=== PATIENT | male | born 1980 | race Hispanic/Latino ===

== ENCOUNTER 2017-10-20 08:47 | Inpatient (IN) | payer SELFPAY ==
[2017-10-20 09:13] LABS: #Eosinphils 0.3 thou/uL (0.0-0.7); #Lymphocytes 1.2 thou/uL (1.20-3.40); #Monocytes 0.6 thou/uL (0.11-0.59); #Neutrophils 4.8 thou/uL (1.40-6.50); %Basophils 0.3 % (0.0-1.0); %Lymphocytes 17.5 % (21.0-51.0); %Neutrophils 69.2 % (42.0-75.0); Mean Corpuscular HGB CONC 33.5 g/dL (32.0-36.0); Mean Corpuscular Hemoglobin 29.7 pg (27.0-31.0); Mean Corpuscular Volume 88.6 fL (78.0-98.0); Mean Platelet Volume 7.1 fL (7.4-10.4); Platelet Count 222 thou/uL (130-400); RBC Distribution Width 12.6 % (11.5-14.5); Red Blood Cell (RBC) Count 3.36 mill/uL (4.70-6.10)
[2017-10-20 09:34] LABS: ALT (SGPT) 15 U/L (8-55); AST (SGOT) 19 U/L (5-34); Albumin 3.4 g/dL (3.5-5.0); Alkaline Phosphatase 142 U/L (40-150); Anion Gap 14 mmol/L (10-20); BUN (Urea Nitrogen) 62 mg/dL (8.9-20.6); Bilirubin, Total 0.5 mg/dL (0.2-1.2); Calc. Creatinine Clearance 0 mL/min (70-130); Calcium 8.3 mg/dL (7.8-10.44); Carbon Dioxide 21 mmol/L (22-29); Chloride 98 mmol/L (98-107); Estimated GFR-MDRD 17; Globulin 4.3 g/dL (2.4-3.5); Glucose 383 mg/dL (70-105); Potassium 4.9 mmol/L (3.5-5.1); Protein, Total 7.7 g/dL (6.0-8.3); Sodium 128 mmol/L (136-145)
[2017-10-20 09:38] LABS: CKMB 2.7 ng/mL (0-6.6); Troponin I Less than 0.010 ng/mL (< 0.028)
--- NOTE | 2017-10-20 09:43 | RAD ---
CHEST ONE VIEW: History: 37-year-old male with history of dyspnea and shortness of breath for one to two weeks with bilateral lower extremity swelling. FINDINGS: Cardiomegaly with bilateral vascular congestion and slight indistinction of the right costophrenic an gle possibly representing some minimal pleural effusion. This appearance certainly suggests some vasc ular congestion but no evidence for overt pulmonary edema. No confluent pneumonia. IMPRESSION: Evidence for vascular congestion with minimal cardiomegaly. No overt confluent pneumonia or acute cristian ma. POS: [facility]
[2017-10-20] MEDS ORDERED: Nitroglycerin 0.4 MG TAB (25 Tab Bottle) ONE (09:52)
[2017-10-20] MEDS ORDERED: Furosemide 40 MG/4 ML VIAL ONE (09:52)
[2017-10-20 13:39] LABS: Troponin I Less than 0.010 ng/mL (< 0.028)
[2017-10-20] MEDS ORDERED: Prevnar 13-Val Conj/PF 0.5 ML SYRINGE IM ONE (14:45)
[2017-10-20] MEDS ORDERED: Acetaminophen 650 MG Suppository PR PRN (16:13)
[2017-10-20] MEDS ORDERED: Ondansetron ODT 4 MG TAB PO PRN (16:13)
[2017-10-20] MEDS ORDERED: Ondansetron HCl/PF 4 MG/2 ML Vial IVP PRN (16:13)
[2017-10-20] MEDS ORDERED: Enoxaparin Sodium 30 MG/0.3 ML SYRINGE SC SCH ×2 (16:15→18:45)
[2017-10-20] MEDS ORDERED: Famotidine 20 MG TAB PO SCH (21:00)
[2017-10-20] MEDS ORDERED: INSULIN DETEMIR 40 UNIT SQ SCH (21:00)
[2017-10-20] MEDS: Bumetanide 1 MG TAB PO SCH (21:48)
[2017-10-20] MEDS: Metoprolol Tartrate 25 MG TAB PO SCH (21:49)
[2017-10-20] MEDS: Gabapentin 100 MG CAP PO SCH (21:49)
[2017-10-20] MEDS: Acetaminophen 325 MG TAB PO PRN (21:50)
[2017-10-20] MEDS: Montelukast Sodium 10 mg Tablet PO SCH (21:50)
[2017-10-20] MEDS: Famotidine 20 MG TAB PO SCH (21:50)
[2017-10-20] MEDS: Insulin Glargine 40 UNITS in Pre-Filled Syringe 1 EACH SC SCH (21:54)
[2017-10-21] MEDS: Acetaminophen 325 MG TAB PO PRN (01:42)
[2017-10-21] MEDS: Furosemide 40 MG/4 ML VIAL SLOW IVP SCH ×2 (05:46→15:31)
[2017-10-21 05:51] LABS: #Eosinphils 0.3 thou/uL (0.0-0.7); #Lymphocytes 1.3 thou/uL (1.20-3.40); #Monocytes 0.7 thou/uL (0.11-0.59); #Neutrophils 4.2 thou/uL (1.40-6.50); %Basophils 0.2 % (0.0-1.0); %Eosinophils 5.1 % (0.0-10.0); %Lymphocytes 20.3 % (21.0-51.0); %Monocytes 10.8 % (0.0-10.0); %Neutrophils 63.7 % (42.0-75.0); Hemoglobin 9.4 g/dL (14.0-18.0); Mean Corpuscular HGB CONC 32.6 g/dL (32.0-36.0); Mean Corpuscular Hemoglobin 29.2 pg (27.0-31.0); Mean Corpuscular Volume 89.7 fL (78.0-98.0); Mean Platelet Volume 7.8 fL (7.4-10.4); Platelet Count 219 thou/uL (130-400); RBC Distribution Width 12.6 % (11.5-14.5); White Blood Cell (WBC) Count 6.6 thou/uL (4.8-10.8)
[2017-10-21 05:58] LABS: Anion Gap 16 mmol/L (10-20); BUN (Urea Nitrogen) 64 mg/dL (8.9-20.6); Calc. Creatinine Clearance 72 mL/min (70-130); Calcium 8.5 mg/dL (7.8-10.44); Carbon Dioxide 20 mmol/L (22-29); Cardiac Risk 4.8 (Less than 4.5); Chloride 99 mmol/L (98-107); Cholesterol 155 mg/dl (< 200 Desired); Estimated GFR-MDRD 20; Glucose 314 mg/dL (70-105); HDL Cholesterol 32 mg/dL (>60 Neg Risk); LDL Cholesterol, Calculated 53 mg/dL; Magnesium 1.4 mg/dL (1.6-2.6); Sodium 130 mmol/L (136-145); Triglycerides 349 mg/dL (Less than 150)
[2017-10-21 06:03] LABS: Hemoglobin A1c 9.8 % (4.0-6.0)
[2017-10-21] MEDS ORDERED: Sodium Chloride 0.9% 10 ML ONE (08:45)
[2017-10-21] MEDS: Insulin Glargine 40 UNITS in Pre-Filled Syringe 1 EACH SC SCH ×2 (10:23→20:24)
[2017-10-21] MEDS: Bumetanide 1 MG TAB PO SCH ×2 (10:24→20:22)
[2017-10-21] MEDS: Atorvastatin Calcium 40 MG TAB PO SCH (10:24)
[2017-10-21] MEDS: Gabapentin 100 MG CAP PO SCH ×3 (10:25→20:23)
[2017-10-21] MEDS: Metoprolol Tartrate 25 MG TAB PO SCH ×2 (10:25→20:23)
[2017-10-21] MEDS: Fluticasone Propionate Nasal Spray 16 gm Bottle NASAL SCH (10:26)
[2017-10-21] MEDS: HumaLOG 300 UNITS/3 ML VIAL SC PRN ×3 (10:34→17:42)
[2017-10-21] MEDS: Glimepiride 1 MG TAB PO SCH (11:03)
[2017-10-21 13:49] VITALS: BMI 58.1
[2017-10-21] MEDS ORDERED: Magnesium 2 GM/NS 0.9% 100 ML 4 GM in Premix Bag 1 BAG IVPB SCH (15:15)
--- NOTE | 2017-10-21 15:53 | HP ---
DATE OF ADMISSION: 10/20/2017 PRIMARY CARE PHYSICIAN: Dr. Paz in [place]. CHIEF COMPLAINT: Shortness of breath. HISTORY OF PRESENT ILLNESS: Mr. Johnson is a 37-year-old male with history of severe obesity, diabetes mellitus type 2, CHF unknown type, suspected diastolic chronically who presents to the emergency department for complaints as above. He has had a 30-pound weight gain over the last mo nth or so, increased swelling and pain in his bilateral calves. No chest pain, but does have shortne ss of breath, dyspnea on exertion and some orthopnea. No PND. He normally takes medicines, but he h as been out of them for a week or two because he had been out of town from his normal home and had be en here in [place] [employer] looking for work in the [employer]. The patient also reports a blister to the bottom of his foot for 3-4 weeks. His has been managi ng. It is continuing to improve. No fevers or chills. No other complaints. PAST MEDICAL HISTORY: 1. Severe obesity. 2. Hypertension. 3. Diabetes mellitus type 2. 4. Congestive heart failure, chronic. PAST SURGICAL HISTORY: 1. Cholecystectomy, open. 2. Right toe amputation. 3. Left eye surgery. HOME MEDICATIONS: 1. Levemir 40 units subcutaneously b.i.d. 2. NovoLog 70/30 sliding scale b.i.d. 3. Reglan 5 mg p.o. q.i.d. 4. Gabapentin 100 mg p.o. t.i.d. 5. Allopurinol 100 mg daily. 6. Glimepiride 2 mg b.i.d. 7. Lipitor 40 mg p.o. at bedtime. 8. Lisinopril 40 mg p.o. daily. 9. Metoprolol tartrate 25 mg p.o. b.i.d. 10. Nexium 40 mg p.o. daily. 11. Bumetanide 2 mg p.o. b.i.d. 12. Montelukast 10 mg p.o. b.i.d. 13. Fluticasone 1 spray each nostril daily. ALLERGIES: NKDA. FAMILY HISTORY: Negative history of clotting or bleeding disorder, no immune dysfunction. SOCIAL HISTORY: The patient drinks a couple of beers every day. No tobacco or drug use. REVIEW OF SYSTEMS: All systems reviewed and negative except as stated as per HPI. PHYSICAL EXAMINATION: VITAL SIGNS: Temperature 98.9, pulse 89, blood pressure 152/82, respiratory rate 17, satting 97% on room air. GENERAL: He is awake. He is alert. He is oriented x3. He is a severely obese male who appears to be in no acute distress. HEENT: Normocephalic, atraumatic. Pupils equal and reactive to light bilaterally. Mucous members a re moist. There are no lesions, no thrush. NECK: Supple. No lymphadenopathy, JVD or thyromegaly. No carotid upstroke. I do not appreciate br uits. LUNGS: Clear anteriorly. Posteriorly has faint bibasilar crackles. Good air movement. Symmetrical chest excursion. No prolonged expiratory phase. No wheezes, rales or rhonchi. CARDIOVASCULAR: Normal S1 and S2. Sounds are distant. I do not appreciate S3 or S4. No audible mu rmurs. ABDOMEN: Soft. It is nontender and obese. I cannot palpate internal organs. EXTREMITIES: Show no cyanosis, no clubbing with 1 to 2+ lower extremity edema to the pretibial area. SKIN: Warm, moist and well perfused. He has no rashes. He does have a right heel diabetic neuropat hic ulcer Styles grade 2 with some granulation tissue seen approximately 2-3 cm and round. MUSCULOSKELETAL: Normal to inspection. Large joints appear normal. There is no evidence of inflamm ation or palpable effusions. NEUROLOGIC: Cranial nerves II-XII are grossly intact. He has no focal deficits. 5/5 strength in al l 4 extremities and normal speech pattern. LABORATORY DATA: CBC showed a white count of 7.0, hemoglobin of 10.0, hematocrit of 29.7, platelet c ount is 222,000. Chemistry showed a sodium of 128, potassium 4.9, chloride 98, bicarbonate 21, BUN 6 2, creatinine 4.00, glucose of 383. Calcium is 8.3. Cardiac biomarkers showed a troponin less than 0.010. CK-MB normal at 2.7. BNP, a little elevated a t 272.7 and rest of the liver function completely within normal limits. Chest x-ray showed no acute cardiopulmonary disease. ASSESSMENT AND PLAN: 1. Acute on chronic congestive heart failure, suspect diastolic. We will get serial cardiac biomark ers and a 2D echocardiogram. We will continue nitro paste and IV Lasix q.12 hours and monitor intake and output. Place the patient on inpatient telemetry status. 2. Severe obesity. 3. Diabetes mellitus type 2. We will continue his Levemir and sliding scale insulin. We will put h im on a diabetic diet. 4. Hypertension. Continue home medications. 5. Hyperlipidemia. Continue home medication. 6. Peripheral neuropathy. We will continue his Neurontin. 7. Gastroesophageal reflux disease. We will continue his Nexium.
[2017-10-21] MEDS: Montelukast Sodium 10 mg Tablet PO SCH (20:23)
[2017-10-21] MEDS: Famotidine 20 MG TAB PO SCH (20:23)
[2017-10-21] MEDS ORDERED: Dextrose 5% in Water 1,000 ML IV PRN (20:39)
[2017-10-21] MEDS ORDERED: HumaLOG 300 UNITS/3 ML VIAL SC PRN ×2 (20:39)
[2017-10-21] MEDS ORDERED: Dextrose 50% Abboject 50 ML SYRINGE IVP PRN (20:39)
[2017-10-22] MEDS: Acetaminophen 325 MG TAB PO PRN (01:49)
[2017-10-22] MEDS: Furosemide 40 MG/4 ML VIAL SLOW IVP SCH ×2 (05:54→15:03)
[2017-10-22 06:03] LABS: #Eosinphils 0.3 thou/uL (0.0-0.7); #Lymphocytes 1.6 thou/uL (1.20-3.40); #Monocytes 0.9 thou/uL (0.11-0.59); #Neutrophils 4.4 thou/uL (1.40-6.50); %Basophils 0.5 % (0.0-1.0); %Eosinophils 4.7 % (0.0-10.0); %Monocytes 11.8 % (0.0-10.0); Hemoglobin 9.8 g/dL (14.0-18.0); Mean Corpuscular HGB CONC 33.6 g/dL (32.0-36.0); Mean Corpuscular Hemoglobin 29.9 pg (27.0-31.0); Mean Platelet Volume 7.7 fL (7.4-10.4); Platelet Count 210 thou/uL (130-400); RBC Distribution Width 12.6 % (11.5-14.5); Red Blood Cell (RBC) Count 3.26 mill/uL (4.70-6.10); White Blood Cell (WBC) Count 7.2 thou/uL (4.8-10.8)
[2017-10-22 06:08] LABS: Anion Gap 13 mmol/L (10-20); BUN (Urea Nitrogen) 60 mg/dL (8.9-20.6); Calc. Creatinine Clearance 38 mL/min (70-130); Calcium 8.7 mg/dL (7.8-10.44); Carbon Dioxide 25 mmol/L (22-29); Chloride 98 mmol/L (98-107); Estimated GFR-MDRD 21; Glucose 370 mg/dL (70-105); Magnesium 1.7 mg/dL (1.6-2.6); Potassium 4.6 mmol/L (3.5-5.1); Sodium 131 mmol/L (136-145)
[2017-10-22] MEDS: Insulin Glargine 40 UNITS in Pre-Filled Syringe 1 EACH SC SCH ×2 (08:43→21:33)
[2017-10-22] MEDS: Glimepiride 1 MG TAB PO SCH (08:44)
[2017-10-22] MEDS: HumaLOG 300 UNITS/3 ML VIAL SC PRN (08:44)
[2017-10-22] MEDS: Gabapentin 100 MG CAP PO SCH ×3 (08:44→21:33)
[2017-10-22] MEDS: Metoprolol Tartrate 25 MG TAB PO SCH ×2 (08:45→21:33)
[2017-10-22] MEDS: Bumetanide 1 MG TAB PO SCH ×2 (08:45→21:33)
[2017-10-22] MEDS: Atorvastatin Calcium 40 MG TAB PO SCH (08:45)
[2017-10-22] MEDS: Fluticasone Propionate Nasal Spray 16 gm Bottle NASAL SCH (08:45)
[2017-10-22] MEDS ORDERED: HumaLOG 300 UNITS/3 ML VIAL SC PRN (11:43)
--- NOTE | 2017-10-22 12:30 | PDOC.PN ---
- Subjective Encounter Start Date: 10/22/17 Encounter Start Time: 12:29 Feels better in general. Ambulating well, which he could not do before. Reports he uses novolog 25 units q ac along with the levemir 40 bid. His blood sugars usually run around 200. Last A1c was 8-9 range. - Objective Resuscitation Status: Resuscitation Status FULL:Full Resuscitation Vital Signs & Weight: Vital Signs (12 hours) Temp Pulse Resp BP BP BP Pulse Ox 10/22/17 12:00 98.2 F 93 16 167/90 H 95 10/22/17 08:00 97.6 F 95 16 170/94 H 159/90 H 95 10/22/17 04:00 98 F 95 20 165/87 H 95 Weight Admit Weight 383 lb 4.8 oz Weight 176 lb 14.4 oz I&O: 10/21/17 10/22/17 10/23/17 06:59 06:59 06:59 Intake Total 900 2064 240 Output Total 1950 6613 Balance -1050 -4561 240 Result Diagrams: 10/22/17 05:08 10/22/17 05:08 Additional Labs: Accuchecks 10/22/17 10/22/17 10/22/17 10:38 05:07 00:36 POC Glucose 400 H 370 H 379 H 10/21/17 10/21/17 20:08 11:05 POC Glucose 375 H 393 H Phys Exam - Physical Examination Constitutional: NAD Morbidly obese Respiratory: no wheezing, no rales, no rhonchi, clear to auscultation bilateral Cardiovascular: RRR, no significant murmur Gastrointestinal: soft, non-tender, no distention, positive bowel sounds 1+ edema with chronic stasis dermatitis. Dx/Plan (1) Dyspnea Code(s): R06.00 - DYSPNEA, UNSPECIFIED Status: Acute (2) Diabetes Code(s): E11.9 - TYPE 2 DIABETES MELLITUS WITHOUT COMPLICATIONS Status: Acute (3) Peripheral edema Code(s): R60.9 - EDEMA, UNSPECIFIED Status: Acute (4) Morbid obesity Code(s): E66.01 - MORBID (SEVERE) OBESITY DUE TO EXCESS CALORIES Status: Acute (5) Hypertension Code(s): I10 - ESSENTIAL (PRIMARY) HYPERTENSION Status: Acute (6) Hyperlipidemia Code(s): E78.5 - HYPERLIPIDEMIA, UNSPECIFIED Status: Acute - Plan * Edema is improved. His blood sugars are terrible. I am going to get him back on his baseline insulin regimen to see if that will improve. Once his blood sugars are in a reasonable range, can discharge. Problem is that he does not have access to his meds and he is from [place]. May need some additional assistance.
--- NOTE | 2017-10-22 16:37 | EKG ---
Test Reason : Blood Pressure : / mmHG Vent. Rate : 087 BPM Atrial Rate : 087 BPM P-R Int : 148 ms QRS Dur : 090 ms QT Int : 368 ms P-R-T Axes : 006 -29 048 degrees QTc Int : 442 ms Normal sinus rhythm Normal ECG Confirmed by RUBI QUEZADA ([id number]), video effects editor LUCIANO DOE ([id number]) on 10/22/2017 4:37:20 PM Referred By: Confirmed By:RUBI QUEZADA
[2017-10-22] MEDS: HumaLOG 300 UNITS/3 ML VIAL SC SCH (17:28)
[2017-10-22] MEDS: Montelukast Sodium 10 mg Tablet PO SCH (21:33)
[2017-10-22] MEDS: Famotidine 20 MG TAB PO SCH (21:33)
[2017-10-23] MEDS: Acetaminophen 325 MG TAB PO PRN ×2 (03:34→11:18)
[2017-10-23] MEDS: Furosemide 40 MG/4 ML VIAL SLOW IVP SCH ×2 (06:07→14:15)
[2017-10-23] MEDS: HumaLOG 300 UNITS/3 ML VIAL SC SCH ×2 (07:27→11:13)
[2017-10-23] MEDS: Glimepiride 1 MG TAB PO SCH (09:31)
[2017-10-23] MEDS: Insulin Glargine 40 UNITS in Pre-Filled Syringe 1 EACH SC SCH (09:32)
[2017-10-23] MEDS: Bumetanide 1 MG TAB PO SCH (09:32)
[2017-10-23] MEDS: Atorvastatin Calcium 40 MG TAB PO SCH (09:32)
[2017-10-23] MEDS: Gabapentin 100 MG CAP PO SCH ×2 (09:32→14:15)
[2017-10-23] MEDS: Metoprolol Tartrate 25 MG TAB PO SCH (09:32)
[2017-10-23] MEDS: Fluticasone Propionate Nasal Spray 16 gm Bottle NASAL SCH (09:33)
[2017-10-23 12:20] VITALS: BP 190/100; TEMP 96.4
--- NOTE | 2017-10-25 10:51 | DIS ---
DATE OF ADMISSION: 10/20/2017 DATE OF DISCHARGE: 10/23/2017 DISCHARGE DIAGNOSES: 1. Shortness of breath. 2. Volume-overload suspected to be related to diastolic dysfunction. 3. Severe morbid obesity with BMI greater than 56. 4. Uncontrolled diabetes mellitus. 5. Hypertension. 6. History of hyperlipidemia. 7. History of peripheral neuropathy. 8. Renal insufficiency, chronicity unknown. 9. Chronic heel ulcer. HISTORY: Patient is a 37-year-old male with a history of poorly-controlled diabetes and morbid obesi ty, who typically lives in [facility]. Patient was in this area, looking for work with his whole f [place]. The patient presented in the emergency department complaining of a 30-pound weight gain over the last several weeks as well as some swelling in his lower extremities and shortness of breath. Th e patient had a minimally elevated BNP, but his initial BUN and his initial creatinine were elevated at 62 and 4.0. Patient's baseline values were not known. HOSPITAL COURSE: Patient was diuresed, had significant improvement of his peripheral edema and his s hortness of breath. The patient was able to get up and ambulate well. However, his blood sugars con tinued to run very high, patient reported that he did not have any of his usual medications and that he typically was getting them from a clinic in [place] that was able to help him, getting his medicati ons for a year at reduced cost. It was unclear how the patient was going to manage his situation at the time of discharge. Given his blood sugars running as high as they were with the sliding scale, w e were able to switch him back to a regimen that more closely resembled his usual medications. With that, his blood sugars came down from the 400 range down to around 300. This was arranged, we could at least feel comfortable, now considering discharge. The patient was very eager to leave the hospit al and told me that he would be leaving directly from the hospital, going right back to [place], so th at he could get his medicines from the clinic and see his provider there. DISPOSITION: Patient will be discharged to home. He will have prescriptions for all of his new medi cations, as I do not what his plan is, although he indicated he will be going directly back home to et his medications refilled and see his provider there. He is to be on a diabetic diet. His activit y level is as tolerated. He will remain on his usual medicines including lisinopril, glimepiride, at orvastatin, Bumex, fluticasone, metoprolol, metoclopramide, Neurontin, montelukast, Nexium, allopurin ol, Levemir, and NovoLog. Of note, patient had an echocardiogram in the hospital, which revealed an ejection fraction of 50%-55% without substantial evidence of diastolic dysfunction, but it was a tech nically difficult study given the patient's morbid obesity. PHYSICAL EXAMINATION: VITAL SIGNS: On the day of discharge, pulse 88, respirations 16, temperature 97, BP was 158/75. GENERAL: He was awake, alert, oriented, pleasant, cooperative. HEART: Regular. LUNGS: Clear bilaterally. ABDOMEN: Soft, nontender. EXTREMITIES: With trace to 1+ edema bilaterally. Patient is encouraged to return to the emergency d epartment should he have any problems prior to the time of his discharge. He is educated on the fact that he will need to have repeat lab work done as soon as he can once he reestablishes with his prov ider. Repeat labs revealed BUN of 64, creatinine 3.2.
== END 2017-10-23 14:51 | disposition home or self-care (01) | DRG 292 ==
LOC: ERS 08:47 → ERHOLD 10:55 → 2NO 13:59
PROVIDERS: ADMIT Internal Medicine Infectious Disease; ATTEND Internal Medicine Infectious Disease
DX: I11.0 Hypertensive heart disease with heart failure (principal); Z68.43 Body mass index [BMI] 50.0-59.9, adult; E66.9 Obesity, unspecified; I50.33 Acute on chronic diastolic (congestive) heart failure; E11.9 Type 2 diabetes mellitus without complications; Z79.4 Long term (current) use of insulin; E78.5 Hyperlipidemia, unspecified; E11.42 Type 2 diabetes mellitus with diabetic polyneuropathy; K21.9 Gastro-esophageal reflux disease without esophagitis
CPT/HCPCS: 36415; 36416; 71045; 80048; 80053; 80061; 82553; 83036; 83735; 83880; 84484; 85025; 93005; 93306; 93798; 96374; A4216; J1650; J1940; J3475